=== PATIENT | male | born 1945 | race Caucasian/White ===

== ENCOUNTER 2021-04-20 10:22 | Emergency (ER) | payer OTHER ==
[~2021-04-20] VITALS: Ht 177.8 cm; Wt 74.8 kg
== END 2021-04-20 11:31 | disposition home or self-care (01) ==
LOC: ER 10:22
DX: H66.90 Otitis media, unspecified, unspecified ear (principal); R50.9 Fever, unspecified

== ENCOUNTER 2021-04-22 13:04 | Emergency (ER) | payer OTHER ==
[~2021-04-22] VITALS: Ht 177.8 cm; Wt 70.3 kg
[2021-04-22] MEDS ORDERED: CRESTOR10 MG PO (13:24)
== END 2021-04-22 17:36 | disposition home or self-care (01) ==
LOC: ER 13:04
DX: J40 Bronchitis, not specified as acute or chronic (principal)